=== PATIENT | female | born 1955 | race Caucasian/White ===

== ENCOUNTER 2016-09-14 19:40 | Observation (INO) | payer OTHER ==
[~2016-09-14] VITALS: Ht 160 cm; Wt 43.7 kg
[~2016-09-14 19:40] MED LIST: ALBUTEROL17 GM IH; ASPIR-LOW81 MG PO; ASPIRIN325 MG PO; Advair HFA 115/21 IH; DULERA 100 MCG/13 GM IH; DULERA 200 MCG/13 GM IH; DUONEB3 ML IH; Flonase BOTH NARES; Habitrol,Nicoderm CQ TD; IBUPROFEN800 MG PO; INDERAL10 MG PO; LEVAQUIN750 MG PO; LEVOFLOXACIN750 MG PO; LEVOTHYROXINE50 MCG PO; LEVOTHYROXINE75 MCG PO; LORAZEPAM0.5 MG PO; Levaquin PO; MOBIC15 MG PO; MOTRIN800 MG PO; MULTIVITAMIN1 EAC2 PO; MYCELEX10 MG MM; NOHOMEMEDS; Ocean Nasal 0.65%; PREDNISONE10 MG PO; PREDNISONE20 MG PO; PROTONIX40 MG PO; Proventil,Ventolin H IH; TRAMADOL HCL50 MG PO; TYLENOL/CODE1 TABLET PO; VENTOLIN HFA18 GM IH; VITAMIN D-32000 UNI1 PO; Xanax PO; Zithromax PO
[2016-09-14 20:06] LABS: HEMATOCRIT 36.8 % (36.0-46.0); MCH 26.7 PG (29.0-34.0); MCHC 30.7 G/DL (30.0-36.0); MCV 86.8 FL (83-99); MEAN PLAT.VOLUME 8.9 uM^3 (9.5-12.4); PLATELET COUNT 397 K/uL (156-360); RBC DIS.WIDTH-CV 14.9 % (11.8-14.6); RBC DIS.WIDTH-SD 47.5 % (39-53); RED BLOOD COUNT 4.24 M/uL (3.80-5.20); WHITE BLOOD COUNT 6.1 K/uL (4.1-10.2)
[2016-09-14 20:19] LABS: CHLORIDE 101 mEq/L (99-109); POTASSIUM 3.7 mEq/L (3.7-5.4); SODIUM 141 mEq/L (136-147)
[2016-09-14 20:20] LABS: GLUCOSE 119 mg/dL (70-99)
[2016-09-14 20:22] LABS: ANION GAP 9 MEQ/L (2-14)
[2016-09-14 20:24] LABS: GFR ESTIMATE (CALCULATED) > 59 mL/min/
[2016-09-14 20:25] LABS: UREA NITROGEN (BUN) 13 mg/dL (9-23)
[2016-09-14 20:27] LABS: TROP-I INTERPRETATION NEGATIVE; TROPONIN-I < 0.01 ng/mL (0.0-0.30)
[2016-09-14 21:50] LABS: INFLUENZA A VIRAL ANTIGEN NEGATIVE; INFLUENZA B VIRAL ANTIGEN NEGATIVE
[2016-09-15] MEDS ORDERED: ATIVAN0.5 MG PO (00:15)
[2016-09-15] MEDS ORDERED: CLOPIDOGREL75 MG PO (00:16)
[2016-09-15] MEDS ORDERED: LISINOPRIL10 MG PO (00:17)
[2016-09-15] MEDS ORDERED: VITAMIN D2000 UNIT PO (00:18)
[2016-09-15] MEDS ORDERED: CYANOCOBALAM1000 MCG PO (00:19)
[2016-09-15] MEDS ORDERED: OXYCODONE-ACET1 EACH PO (00:19)
[2016-09-15] MEDS ORDERED: IBUPROFEN800 MG PO (00:20)
[2016-09-15] MEDS ORDERED: DALIRESP500 MCG PO (00:21)
[2016-09-15] MEDS ORDERED: NICOTINE PATCH1 EAC2 TD (00:22)
[2016-09-15] MEDS ORDERED: SALINE NASAL SP45 ML BOTH NARES (00:22)
[2016-09-15 01:05] VITALS: BP 114/69
[2016-09-15 02:12] LABS: ADD MIUA? YES; BILIRUBIN NEGATIVE; BLOOD NEGATIVE; COLOR YELLOW ((YELLOW)); GLUCOSE (STRIP) NEGATIVE; KETONES 5; LEUKOCYTES NEGATIVE; NITRITE NEGATIVE; PROTEIN (STRIP) NEGATIVE; SPECIFIC GRAVITY 1.021 (1.000-1.030); UROBILINOGEN 0.2 MG/DL (0.2-1.0)
[2016-09-15 02:20] LABS: BACTERIA RARE /HPF; EPITHELIAL CELLS RARE /HPF; MUCUS 3+ /LPF; RED BLOOD CELLS 0-5 /HPF (0-5); UCUL ADDED? NO; WHITE BLOOD CELLS 0-5 /HPF (0-5)
[2016-09-15 02:54] LABS: TROP-I INTERPRETATION NEGATIVE; TROPONIN-I < 0.01 ng/mL (0.0-0.30)
[2016-09-15 04:30] VITALS: BP 116/64
[2016-09-15 08:36] VITALS: BP 104/55
[2016-09-15 09:32] LABS: TROP-I INTERPRETATION NEGATIVE; TROPONIN-I < 0.01 ng/mL (0.0-0.30)
[2016-09-15 11:52] VITALS: BP 115/70
[2016-09-15] MEDS ORDERED: AZITHROMYCIN500 M1 PO (13:32)
[2016-09-15] MEDS ORDERED: CEFTIN500 MG PO (13:32)
[2016-09-15] MEDS ORDERED: ASPIR-LOW81 MG PO (13:32)
[2016-09-15] MEDS ORDERED: BENZONATATE100 MG PO (13:34)
[2016-09-15] MEDS ORDERED: PREDNISONE10 MG PO (13:35)
== END 2016-09-15 15:17 | disposition home or self-care (01) ==
LOC: EME → EDBD 19:40 → EME 19:40 → EDOF 23:52 → 5WEST 09-15 00:53
PROVIDERS: Emergency Medicine; Family Medicine
DX: J44.1 Chronic obstructive pulmonary disease with (acute) exacerbation (principal); J96.21 Acute and chronic respiratory failure with hypoxia; R07.89 Other chest pain; I10 Essential (primary) hypertension; E03.9 Hypothyroidism, unspecified; I25.10 Atherosclerotic heart disease of native coronary artery without angina pectoris; Z99.81 Dependence on supplemental oxygen; F17.210 Nicotine dependence, cigarettes, uncomplicated; F41.9 Anxiety disorder, unspecified
CPT/HCPCS: 71010; 71020; 80048; 81003; 83605; 83880; 84484; 85027; 87502; 93005; 94640; 94640 76; 94799; 99202; 99281; 99285; G0378; J1644; J2930

== ENCOUNTER 2016-09-17 18:29 | Inpatient (IN) | payer OTHER ==
[2016-09-17] VITALS (9 sets, daily range): BP systolic 108–153; BP diastolic 71–114
[~2016-09-17] VITALS: Ht 160 cm; Wt 43.8 kg
[~2016-09-17 18:29] MED LIST changes: +ATIVAN0.5 MG PO; +AZITHROMYCIN500 M1 PO; +BENZONATATE100 MG PO; +CEFTIN500 MG PO; +CLOPIDOGREL75 MG PO; +CYANOCOBALAM1000 MCG PO; +DALIRESP500 MCG PO; +LISINOPRIL10 MG PO; +NICOTINE PATCH1 EAC2 TD; +OXYCODONE-ACET1 EACH PO; +SALINE NASAL SP45 ML BOTH NARES; +VITAMIN D2000 UNIT PO
[2016-09-17 19:52] LABS: HEMATOCRIT 37.1 % (36.0-46.0); MCH 26.5 PG (29.0-34.0); MCHC 30.2 G/DL (30.0-36.0); MCV 87.9 FL (83-99); MEAN PLAT.VOLUME 9.1 uM^3 (9.5-12.4); PLATELET COUNT 405 K/uL (156-360); RBC DIS.WIDTH-CV 14.9 % (11.8-14.6); RBC DIS.WIDTH-SD 47.2 % (39-53); RED BLOOD COUNT 4.22 M/uL (3.80-5.20); WHITE BLOOD COUNT 9.8 K/uL (4.1-10.2)
[2016-09-17 20:00] LABS: CHLORIDE 102 mEq/L (99-109); SODIUM 142 mEq/L (136-147)
[2016-09-17 20:02] LABS: GLUCOSE 102 mg/dL (70-99)
[2016-09-17 20:03] LABS: ANION GAP 8 MEQ/L (2-14)
[2016-09-17 20:06] LABS: GFR ESTIMATE (CALCULATED) > 59 mL/min/
[2016-09-17 20:07] LABS: UREA NITROGEN (BUN) 15 mg/dL (9-23)
[2016-09-17 22:52] LABS: TROP-I INTERPRETATION INDETERMINATE; TROPONIN-I 0.38 ng/mL (0.0-0.30)
[2016-09-18 00:27] LABS: TROP-I INTERPRETATION POSITIVE
[2016-09-18 00:28] LABS: TROPONIN-I 0.63 ng/mL (0.0-0.30)
[2016-09-18 01:38] LABS: PROTHROMBIN TIME 10.2 (9.2-11.2); PTT 25.9 (25-32)
[2016-09-18 06:46] LABS: HEMATOCRIT 36.2 % (36.0-46.0); MCH 26.3 PG (29.0-34.0); MCHC 29.8 G/DL (30.0-36.0); MCV 88.3 FL (83-99); MEAN PLAT.VOLUME 9.1 uM^3 (9.5-12.4); PLATELET COUNT 404 K/uL (156-360); RBC DIS.WIDTH-CV 14.9 % (11.8-14.6); RBC DIS.WIDTH-SD 47.2 % (39-53); WHITE BLOOD COUNT 9.1 K/uL (4.1-10.2)
[2016-09-18 06:58] LABS: CHLORIDE 103 mEq/L (99-109); POTASSIUM 3.9 mEq/L (3.7-5.4); SODIUM 141 mEq/L (136-147)
[2016-09-18 07:00] LABS: GLUCOSE 92 mg/dL (70-99)
[2016-09-18 07:01] LABS: ANION GAP 6 MEQ/L (2-14)
[2016-09-18 07:02] LABS: TOTAL BILIRUBIN 0.3 mg/dL (0.0-1.0)
[2016-09-18 07:03] LABS: ALKALINE PHOSPHATASE 52 IU/L (3-129)
[2016-09-18 07:04] LABS: GFR ESTIMATE (CALCULATED) > 59 mL/min/
[2016-09-18 07:05] LABS: UREA NITROGEN (BUN) 12 mg/dL (9-23)
[2016-09-18 07:09] LABS: TROP-I INTERPRETATION INDETERMINATE; TROPONIN-I 0.56 ng/mL (0.0-0.30)
[2016-09-18 13:48] LABS: PROTHROMBIN TIME 10.4 (9.2-11.2); PTT 44.1 (25-32)
[2016-09-18 13:58] LABS: TROP-I INTERPRETATION NEGATIVE; TROPONIN-I 0.24 ng/mL (0.0-0.30)
[2016-09-18 16:40] VITALS: BP 133/81
[2016-09-18 19:30] VITALS: BP 111/75
[2016-09-18 23:20] VITALS: BP 120/72
[2016-09-19] VITALS (8 sets, daily range): BP systolic 104–120; BP diastolic 59–72
[2016-09-19 07:01] LABS: EOSINOPHIL (%) 0 % (0-5); IMMATURE GRANULOCYTE (%) 0.2 % (0.0-0.7); LYMPHOCYTE COUNT 1.4 K/uL (1.0-2.8); MCHC 29.8 G/DL (30.0-36.0); MCV 87.5 FL (83-99); MEAN PLAT.VOLUME 9.3 uM^3 (9.5-12.4); MONOCYTE (%) 4.2 % (3-12); MONOCYTE COUNT 0.5 K/uL (0-0.8); NEUTROPHIL (%) 83.4 % (45-76); NEUTROPHIL COUNT 9.7 K/uL (1.8-6.4); PLATELET COUNT 459 K/uL (156-360); RBC DIS.WIDTH-SD 47.6 % (39-53); RED BLOOD COUNT 4.57 M/uL (3.80-5.20); WHITE BLOOD COUNT 11.6 K/uL (4.1-10.2)
[2016-09-19 07:58] LABS: ANION GAP 6 MEQ/L (2-14); CHLORIDE 104 MEQ/L (99-109); GFR ESTIMATE (CALCULATED) > 59 mL/min/; MAGNESIUM 2.4 mg/dl (1.3-2.7); POTASSIUM 4.4 MEQ/L (3.7-5.4); SAMPLE HEMOLYSIS CHECK 0; SAMPLE ICTERIC CHECK 0; SAMPLE LIPEMIA CHECK 0; SODIUM 140 MEQ/L (136-147); UREA NITROGEN (BUN) 16 mg/dL (9-23)
[2016-09-19 08:05] LABS: GLUCOSE 141 mg/dL (70-99)
[2016-09-20 03:43] VITALS: BP 117/65
[2016-09-20 07:38] VITALS: BP 122/67
[2016-09-20 11:07] VITALS: BP 117/60
[2016-09-20 15:39] VITALS: BP 122/69
[2016-09-20 20:30] VITALS: BP 118/61
[2016-09-21] VITALS (9 sets, daily range): BP systolic 110–149; BP diastolic 56–89
[2016-09-21 07:24] LABS: EOSINOPHIL (%) 0.1 % (0-5); HEMATOCRIT 35.6 % (36.0-46.0); IMMATURE GRANULOCYTE (%) 0.7 % (0.0-0.7); IMMATURE GRANULOCYTE COUNT 0.1 K/uL; LYMPHOCYTE COUNT 0.7 K/uL (1.0-2.8); MCH 26.8 PG (29.0-34.0); MCHC 29.2 G/DL (30.0-36.0); MEAN PLAT.VOLUME 9.9 uM^3 (9.5-12.4); MONOCYTE (%) 2.5 % (3-12); MONOCYTE COUNT 0.4 K/uL (0-0.8); NEUTROPHIL (%) 91.8 % (45-76); NEUTROPHIL COUNT 13.5 K/uL (1.8-6.4); PLATELET COUNT 386 K/uL (156-360); RBC DIS.WIDTH-CV 15.4 % (11.8-14.6); RBC DIS.WIDTH-SD 51.5 % (39-53); RED BLOOD COUNT 3.88 M/uL (3.80-5.20); WHITE BLOOD COUNT 14.7 K/uL (4.1-10.2)
[2016-09-21 07:25] LABS: MCV 91.8 FL (83-99)
[2016-09-21 07:50] LABS: ANION GAP 4 MEQ/L (2-14); CHLORIDE 98 MEQ/L (99-109); GFR ESTIMATE (CALCULATED) > 59 mL/min/; GLUCOSE 122 mg/dL (70-99); MAGNESIUM 2.1 mg/dl (1.3-2.7); POTASSIUM 4.8 MEQ/L (3.7-5.4); SAMPLE HEMOLYSIS CHECK 0; SAMPLE ICTERIC CHECK 0; SAMPLE LIPEMIA CHECK 0; SODIUM 141 MEQ/L (136-147); UREA NITROGEN (BUN) 21 mg/dL (9-23)
[2016-09-21 12:12] LABS: BASE EXCESS 12.6 mEq/L (-3 to +3); BICARBONATE 41.8 mEq/L (22-26); CARBOXY HGB 2.3 % (0-5); METHEMOGLOBIN 1.8 % (0-1.5); PO2 56 mm Hg (80-100); pH 7.31 (7.35-7.45)
[2016-09-21 12:13] LABS: DEVICE NC; O2 FLOW 4 L/MIN; PCO2 83 mm Hg (35-45); SITE LR; TOTAL RESP RATE 30 resp/min
[2016-09-21 16:19] LABS: METH RESISTANT S AUREUS PCR NEGATIVE (NEGATIVE)
[2016-09-21 16:26] LABS: PROBE CHECK PASS; SPECIMEN PROCESSING CONTROL PASS
[2016-09-22] VITALS (10 sets, daily range): BP systolic 112–157; BP diastolic 59–80
[2016-09-22 08:53] LABS: HEMATOCRIT 37.2 % (36.0-46.0); MCHC 28.8 G/DL (30.0-36.0); MCV 90.3 FL (83-99); MEAN PLAT.VOLUME 9.5 uM^3 (9.5-12.4); PLATELET COUNT 425 K/uL (156-360); RBC DIS.WIDTH-CV 15.2 % (11.8-14.6); RED BLOOD COUNT 4.12 M/uL (3.80-5.20); WHITE BLOOD COUNT 15.7 K/uL (4.1-10.2)
[2016-09-22 09:00] LABS: EOSINOPHIL (%) 0 % (0-5); IMMATURE GRANULOCYTE (%) 0.4 % (0.0-0.7); IMMATURE GRANULOCYTE COUNT 0.1 K/uL; MONOCYTE (%) 5.9 % (3-12); MONOCYTE COUNT 0.9 K/uL (0-0.8); NEUTROPHIL (%) 87.2 % (45-76); NEUTROPHIL COUNT 13.7 K/uL (1.8-6.4)
[2016-09-22 09:22] LABS: ANION GAP 7 MEQ/L (2-14); CHLORIDE 95 MEQ/L (99-109); GFR ESTIMATE (CALCULATED) > 59 mL/min/; GLUCOSE 161 mg/dL (70-99); MAGNESIUM 2.2 mg/dl (1.3-2.7); POTASSIUM 4.3 MEQ/L (3.7-5.4); SAMPLE HEMOLYSIS CHECK 0; SAMPLE ICTERIC CHECK 0; SAMPLE LIPEMIA CHECK 0; SODIUM 142 MEQ/L (136-147); UREA NITROGEN (BUN) 23 mg/dL (9-23)
[2016-09-22 12:00] LABS: BASE EXCESS 19.1 mEq/L (-3 to +3); BICARBONATE 48.6 mEq/L (22-26); METHEMOGLOBIN 1.5 % (0-1.5); pH 7.34 (7.35-7.45)
[2016-09-22 12:01] LABS: COMMENTS - BLOOD GASES A+C+; DEVICE NC; O2 FLOW 4 L/MIN; PCO2 90 mm Hg (35-45); PO2 68 mm Hg (80-100); SITE LR; TOTAL RESP RATE 12 resp/min
[2016-09-23 03:45] VITALS: BP 124/73
[2016-09-23 07:00] VITALS: BP 138/73
[2016-09-23 07:20] LABS: EOSINOPHIL (%) 0 % (0-5); HEMATOCRIT 36.2 % (36.0-46.0); IMMATURE GRANULOCYTE (%) 0.3 % (0.0-0.7); LYMPHOCYTE COUNT 0.6 K/uL (1.0-2.8); MCH 26.1 PG (29.0-34.0); MCV 89.8 FL (83-99); MEAN PLAT.VOLUME 9.3 uM^3 (9.5-12.4); MONOCYTE (%) 6.3 % (3-12); MONOCYTE COUNT 0.6 K/uL (0-0.8); NEUTROPHIL COUNT 8.2 K/uL (1.8-6.4); PLATELET COUNT 368 K/uL (156-360); RBC DIS.WIDTH-CV 15.3 % (11.8-14.6); RBC DIS.WIDTH-SD 50.2 % (39-53); RED BLOOD COUNT 4.03 M/uL (3.80-5.20)
[2016-09-23 07:24] LABS: WHITE BLOOD COUNT 9.4 K/uL (4.1-10.2)
[2016-09-23 07:30] LABS: ANION GAP ND MEQ/L (2-14); CHLORIDE 94 MEQ/L (99-109); GFR ESTIMATE (CALCULATED) > 59 mL/min/; GLUCOSE 130 mg/dL (70-99); MAGNESIUM 2.3 mg/dl (1.3-2.7); POTASSIUM 4.5 MEQ/L (3.7-5.4); SAMPLE HEMOLYSIS CHECK 0; SAMPLE ICTERIC CHECK 0; SAMPLE LIPEMIA CHECK 0; SODIUM 141 MEQ/L (136-147); UREA NITROGEN (BUN) 21 mg/dL (9-23)
[2016-09-23 07:31] LABS: CARBON DIOXIDE (BICARBONATE) > 40.0 MEQ/L (20-31)
[2016-09-23 12:00] VITALS: BP 119/67
[2016-09-23 16:00] VITALS: BP 145/72
[2016-09-23 19:30] VITALS: BP 122/76
[2016-09-23 19:35] VITALS: BP 110/75
[2016-09-24] VITALS (7 sets, daily range): BP systolic 115–142; BP diastolic 56–76
[2016-09-24 06:45] LABS: HEMATOCRIT 33.5 % (36.0-46.0); MCH 26.1 PG (29.0-34.0); MCHC 28.7 G/DL (30.0-36.0); MEAN PLAT.VOLUME 9.8 uM^3 (9.5-12.4); PLATELET COUNT 352 K/uL (156-360); RBC DIS.WIDTH-CV 15.3 % (11.8-14.6); RBC DIS.WIDTH-SD 51.2 % (39-53); RED BLOOD COUNT 3.68 M/uL (3.80-5.20); WHITE BLOOD COUNT 9.3 K/uL (4.1-10.2)
[2016-09-24 07:32] LABS: EOSINOPHIL (%) 0 % (0-5); IMMATURE GRANULOCYTE (%) 0.2 % (0.0-0.7); LYMPHOCYTE COUNT 0.6 K/uL (1.0-2.8); MONOCYTE (%) 6.4 % (3-12); MONOCYTE COUNT 0.6 K/uL (0-0.8); NEUTROPHIL (%) 87.4 % (45-76); NEUTROPHIL COUNT 8.1 K/uL (1.8-6.4)
[2016-09-24 07:49] LABS: ANION GAP ND MEQ/L (2-14); CHLORIDE 95 MEQ/L (99-109); GFR ESTIMATE (CALCULATED) > 59 mL/min/; GLUCOSE 172 mg/dL (70-99); MAGNESIUM 2.2 mg/dl (1.3-2.7); POTASSIUM 4.3 MEQ/L (3.7-5.4); SAMPLE HEMOLYSIS CHECK 0; SAMPLE ICTERIC CHECK 0; SAMPLE LIPEMIA CHECK 0; SODIUM 141 MEQ/L (136-147); UREA NITROGEN (BUN) 24 mg/dL (9-23)
[2016-09-24 07:50] LABS: CARBON DIOXIDE (BICARBONATE) > 40.0 MEQ/L (20-31)
[2016-09-24 10:01] LABS: BASE EXCESS 19.5 mEq/L (-3 to +3); BICARBONATE 47.9 mEq/L (22-26); METHEMOGLOBIN 1.5 % (0-1.5); PO2 64 mm Hg (80-100); pH 7.38 (7.35-7.45)
[2016-09-24 10:02] LABS: COMMENTS - BLOOD GASES A+C+; DEVICE NCH; MECHANICAL RATE 16 resp/min; O2 FLOW 5 L/MIN; PCO2 81 mm Hg (35-45); SITE LR
[2016-09-25] VITALS (7 sets, daily range): BP systolic 115–139; BP diastolic 57–87
[2016-09-26 04:21] VITALS: BP 136/78
[2016-09-26 06:47] LABS: HEMATOCRIT 32.6 % (36.0-46.0); MCH 26.1 PG (29.0-34.0); MCHC 30.1 G/DL (30.0-36.0); MEAN PLAT.VOLUME 9.6 uM^3 (9.5-12.4); PLATELET COUNT 346 K/uL (156-360); RBC DIS.WIDTH-CV 15.5 % (11.8-14.6); RBC DIS.WIDTH-SD 49.8 % (39-53); RED BLOOD COUNT 3.75 M/uL (3.80-5.20)
[2016-09-26 06:50] LABS: MCV 86.9 FL (83-99)
[2016-09-26 07:07] LABS: ANION GAP 4 MEQ/L (2-14); CHLORIDE 96 MEQ/L (99-109); GFR ESTIMATE (CALCULATED) > 59 mL/min/; POTASSIUM 4.3 MEQ/L (3.7-5.4); SAMPLE HEMOLYSIS CHECK 0; SAMPLE ICTERIC CHECK 0; SAMPLE LIPEMIA CHECK 0; SODIUM 140 MEQ/L (136-147); UREA NITROGEN (BUN) 21 mg/dL (9-23)
[2016-09-26 07:12] LABS: GLUCOSE 94 mg/dL (70-99)
[2016-09-26 07:45] VITALS: BP 113/75
[2016-09-26 12:30] VITALS: BP 135/67
[2016-09-26 15:30] VITALS: BP 153/71
[2016-09-26 18:54] VITALS: BP 128/77
[2016-09-26 23:32] VITALS: BP 145/73
[2016-09-27 03:58] VITALS: BP 131/79
[2016-09-27 05:51] LABS: HEMATOCRIT 31.4 % (36.0-46.0); MCH 26.9 PG (29.0-34.0); MCHC 30.9 G/DL (30.0-36.0); MEAN PLAT.VOLUME 9.9 uM^3 (9.5-12.4); PLATELET COUNT 351 K/uL (156-360); RBC DIS.WIDTH-CV 15.6 % (11.8-14.6); RBC DIS.WIDTH-SD 49.3 % (39-53); RED BLOOD COUNT 3.61 M/uL (3.80-5.20); WHITE BLOOD COUNT 12.1 K/uL (4.1-10.2)
[2016-09-27 06:34] LABS: ANION GAP 5 MEQ/L (2-14); CHLORIDE 100 MEQ/L (99-109); GFR ESTIMATE (CALCULATED) > 59 mL/min/; GLUCOSE 77 mg/dL (70-99); POTASSIUM 4.4 MEQ/L (3.7-5.4); SAMPLE HEMOLYSIS CHECK 0; SAMPLE ICTERIC CHECK 0; SAMPLE LIPEMIA CHECK 0; SODIUM 141 MEQ/L (136-147); UREA NITROGEN (BUN) 19 mg/dL (9-23)
[2016-09-27 08:15] VITALS: BP 122/76
[2016-09-27] MEDS ORDERED: METOPROLOL SUCC25 MG PO (10:52)
[2016-09-27] MEDS ORDERED: OXYCODONE-ACET1 EACH PO (10:52)
[2016-09-27] MEDS ORDERED: PREDNISONE20 MG PO (10:52)
[2016-09-27] MEDS ORDERED: ATORVASTATIN CA40 MG PO (10:52)
[2016-09-27 11:52] VITALS: BP 109/67
[2016-09-27 15:15] VITALS: BP 130/73
[2016-09-27 19:22] VITALS: BP 114/69
[2016-09-27 23:52] VITALS: BP 124/67
[2016-09-28 03:41] VITALS: BP 118/58
[2016-09-28 07:47] VITALS: BP 158/80
[2016-09-28 11:24] VITALS: BP 109/55
[2016-09-28] MEDS ORDERED: NAPROXEN500 MG PO (14:13)
[2016-09-28] MEDS ORDERED: ALPRAZOLAM0.5 MG PO (14:13)
[2016-09-28 15:19] VITALS: BP 93/54
== END 2016-09-28 15:45 | DRG 280 ==
LOC: EME → EDBD 18:29 → EME 18:29 → 4EAST 09-18 01:41 → 4WEST 09-18 01:41 → EDOF 09-18 01:41 → 4EAST 09-18 15:33 → 4WEST 09-21 14:25 → 4EAST 09-22 08:17
PROVIDERS: Emergency Medicine; Hospitalist; Internal Medicine
DX: I21.4 Non-ST elevation (NSTEMI) myocardial infarction (principal); J96.21 Acute and chronic respiratory failure with hypoxia; J44.1 Chronic obstructive pulmonary disease with (acute) exacerbation; E03.9 Hypothyroidism, unspecified; E87.4 Mixed disorder of acid-base balance; G89.29 Other chronic pain; I25.5 Ischemic cardiomyopathy; E78.2 Mixed hyperlipidemia; I25.2 Old myocardial infarction; F17.210 Nicotine dependence, cigarettes, uncomplicated; D72.829 Elevated white blood cell count, unspecified; D47.3 Essential (hemorrhagic) thrombocythemia; R00.0 Tachycardia, unspecified; R94.31 Abnormal electrocardiogram [ECG] [EKG]; I15.0 Renovascular hypertension; I25.10 Atherosclerotic heart disease of native coronary artery without angina pectoris; G47.33 Obstructive sleep apnea (adult) (pediatric); Z99.81 Dependence on supplemental oxygen; Z88.1 Allergy status to other antibiotic agents; Z88.8 Allergy status to other drugs, medicaments and biological substances; Z79.82 Long term (current) use of aspirin
CPT/HCPCS: 36600; 71010; 71020; 78582; 80048; 80053; 81003; 82803; 83605; 83735; 83880; 84484; 85025; 85027; 85610; 85730; 87070; 87205; 87502; 87641; 93005; 93306; 94640; 94640 76; 94660; 94667; 94668; 94760; 94799; 99202; 99281; 99285; A9539; A9540; C1750; C1769; C1887; G0378; J0692; J1200; J1644; J2060; J2250; J2270; J2405; J2765; J2920; J2930; J3010; J7030; J7040; J7050; J7512; S0028

== ENCOUNTER 2016-10-18 10:31 | Inpatient (IN) | payer OTHER ==
[~2016-10-18] VITALS: Ht 160 cm; Wt 49.3 kg
[~2016-10-18 10:31] MED LIST changes: +ALPRAZOLAM0.5 MG PO; +ATORVASTATIN CA40 MG PO; +METOPROLOL SUCC25 MG PO; +NAPROXEN500 MG PO
[2016-10-18 11:22] LABS: ADD MIUA? YES; BILIRUBIN NEGATIVE; BLOOD LARGE; COLOR YELLOW ((YELLOW)); GLUCOSE (STRIP) NEGATIVE; KETONES NEGATIVE; LEUKOCYTES NEGATIVE; NITRITE POSITIVE; PROTEIN (STRIP) 100; SPECIFIC GRAVITY 1.011 (1.000-1.030); UROBILINOGEN 0.2 MG/DL (0.2-1.0)
[2016-10-18 11:27] LABS: EOSINOPHIL (%) 0 % (0-5); HEMATOCRIT 23.5 % (36.0-46.0); IMMATURE GRANULOCYTE (%) 0.5 % (0.0-0.7); INSTRUMENT ABS NEUTROPHIL CT 1.9 K/uL; LYMPHOCYTE COUNT 0.3 K/uL (1.0-2.8); MCH 26.6 PG (29.0-34.0); MCHC 30.2 G/DL (30.0-36.0); MEAN PLAT.VOLUME 8.4 uM^3 (9.5-12.4); MONOCYTE (%) 0 % (3-12); NEUTROPHIL (%) 86.5 % (45-76); NEUTROPHIL COUNT 1.9 K/uL (1.8-6.4); PLATELET COUNT 307 K/uL (156-360); RBC DIS.WIDTH-CV 16.1 % (11.8-14.6); RBC DIS.WIDTH-SD 51.9 % (39-53); RED BLOOD COUNT 2.67 M/uL (3.80-5.20)
[2016-10-18 11:34] LABS: CHLORIDE 100 mEq/L (99-109); POTASSIUM 4.4 mEq/L (3.7-5.4); SODIUM 135 mEq/L (136-147)
[2016-10-18 11:36] LABS: GLUCOSE 110 mg/dL (70-99)
[2016-10-18 11:38] LABS: ANION GAP 8 MEQ/L (2-14); TOTAL BILIRUBIN 0.7 mg/dL (0.0-1.0)
[2016-10-18 11:40] LABS: ALKALINE PHOSPHATASE 158 IU/L (3-129); GFR ESTIMATE (CALCULATED) > 59 mL/min/
[2016-10-18 11:41] LABS: UREA NITROGEN (BUN) 21 mg/dL (9-23)
[2016-10-18] MEDS ORDERED: DULERA 200 MCG/13 GM IH (11:41)
[2016-10-18] MEDS ORDERED: ALEVE220 M2 PO (11:43)
[2016-10-18 11:47] LABS: TROP-I INTERPRETATION NEGATIVE; TROPONIN-I 0.01 ng/mL (0.0-0.30)
[2016-10-18 11:48] LABS: RED BLOOD CELLS TNTC /HPF (0-5)
[2016-10-18 11:49] LABS: WHITE BLOOD CELLS 0-5 /HPF (0-5)
[2016-10-18 11:50] LABS: BACTERIA 4+ /HPF; EPITHELIAL CELLS 1+ /HPF; MUCUS 1+ /LPF; UCUL ADDED? YES
[2016-10-18] MEDS ORDERED: LEVO-T50 MCG PO (11:54)
[2016-10-18] MEDS ORDERED: REMERON15 M2 PO (11:55)
[2016-10-18] MEDS ORDERED: COLACE100 MG PO (11:55)
[2016-10-18] MEDS ORDERED: PEPCID20 MG PO (11:56)
[2016-10-18] MEDS ORDERED: PERCOCET 5/31 TABLET PO (11:58)
[2016-10-18] MEDS ORDERED: ACETAMINOPHEN325 M3 PO (11:59)
[2016-10-18 12:23] LABS: ABS NEUTROPHIL COUNT 1.8; BAND NEUTROPHILS 14.8 % (0-8.0); BASOPHILS 1.9 %; EOSINOPHIL ABS CT 0; LYMPHOCYTES 14.8 % (15.0-45.0); PLAT.SUFFICIENCY ADEQUATE; SEG.NEUTROPHILS 68.5 % (46.0-76.0)
[2016-10-18 12:27] LABS: WHITE BLOOD COUNT 2.2 K/uL (4.1-10.2)
[2016-10-18] MEDS ORDERED: LIPITOR40 MG PO (13:55)
[2016-10-18] MEDS ORDERED: TOPROL XL25 MG PO (13:56)
[2016-10-18] MEDS ORDERED: NAPROSYN500 MG PO (13:58)
[2016-10-18] MEDS ORDERED: LOW DOSE ASPIRI81 M1 PO (14:01)
[2016-10-18] MEDS ORDERED: VITAMIN D32000 UNI1 PO (14:04)
[2016-10-18] MEDS ORDERED: MILK OF MAGN PO (14:11)
[2016-10-18] MEDS ORDERED: DULCOLAX10 MG PR (14:12)
[2016-10-18] MEDS ORDERED: FLEET ENEMA-AD118 ML PR (14:12)
[2016-10-18] MEDS ORDERED: XANAX0.5 MG PO (14:14)
[2016-10-18] MEDS ORDERED: TESSALON200 MG PO (14:18)
[2016-10-18] MEDS ORDERED: PROVENTIL,2.5 MG/3 M IH (14:19)
[2016-10-18] MEDS ORDERED: LISINOPRIL5 MG PO (14:21)
[2016-10-18 18:17] VITALS: BP 81/51
[2016-10-18 19:27] VITALS: BP 92/39
[2016-10-18 23:33] VITALS: BP 93/51
[2016-10-19] VITALS (25 sets, daily range): BP systolic 70–124; BP diastolic 50–75
[2016-10-19 05:34] LABS: METH RESISTANT S AUREUS PCR NEGATIVE (NEGATIVE)
[2016-10-19 05:36] LABS: PROBE CHECK PASS; SPECIMEN PROCESSING CONTROL PASS
[2016-10-19 06:21] LABS: HEMATOCRIT 17.7 % (36.0-46.0); MCH 26.9 PG (29.0-34.0); MCHC 29.9 G/DL (30.0-36.0); MCV 89.8 FL (83-99); MEAN PLAT.VOLUME 9.5 uM^3 (9.5-12.4); PLATELET COUNT 244 K/uL (156-360); RBC DIS.WIDTH-CV 16.7 % (11.8-14.6); RBC DIS.WIDTH-SD 54.4 % (39-53); RED BLOOD COUNT 1.97 M/uL (3.80-5.20); WHITE BLOOD COUNT 14.8 K/uL (4.1-10.2)
[2016-10-19 07:02] LABS: ANION GAP 5 MEQ/L (2-14); CHLORIDE 108 MEQ/L (99-109); SAMPLE HEMOLYSIS CHECK 0; SAMPLE ICTERIC CHECK 0; SAMPLE LIPEMIA CHECK 0; SODIUM 138 MEQ/L (136-147)
[2016-10-19 07:10] LABS: GFR ESTIMATE (CALCULATED) 53 mL/min/; GLUCOSE 97 mg/dL (70-99); UREA NITROGEN (BUN) 21 mg/dL (9-23)
[2016-10-19 08:43] LABS: ABS NEUTROPHIL COUNT 13.9; EOSINOPHIL ABS CT 0; INSTRUMENT ABS NEUTROPHIL CT 12.8 K/uL
[2016-10-19 16:53] LABS: ABS NEUTROPHIL COUNT 15.8; BAND NEUTROPHILS 17.5 % (0-8.0); EOSINOPHIL ABS CT 0; HEMATOCRIT 27.2 % (36.0-46.0); HYPOCHROMASIA 2+; LYMPHOCYTES 2.6 % (15.0-45.0); MCH 28.3 PG (29.0-34.0); MCHC 31.3 G/DL (30.0-36.0); MCV 90.7 FL (83-99); MEAN PLAT.VOLUME 9.4 uM^3 (9.5-12.4); METAMYELOCYTES 1.8 %; MYELOCYTES 0.9 %; PLAT.SUFFICIENCY ADEQUATE; PLATELET COUNT 239 K/uL (156-360); POIKILOCYTOSIS 1+; RBC DIS.WIDTH-CV 15.7 % (11.8-14.6); RBC DIS.WIDTH-SD 51.3 % (39-53); SEG.NEUTROPHILS 74.6 % (46.0-76.0); SMUDGE CELLS 3.5; WHITE BLOOD COUNT 17.2 K/uL (4.1-10.2)
[2016-10-20 05:30] VITALS: BP 130/73
[2016-10-20 06:59] LABS: HEMATOCRIT 27.1 % (36.0-46.0); MCH 27.3 PG (29.0-34.0); MCHC 30.6 G/DL (30.0-36.0); MCV 89.1 FL (83-99); PLATELET COUNT 233 K/uL (156-360); RBC DIS.WIDTH-CV 16.3 % (11.8-14.6); RBC DIS.WIDTH-SD 53.1 % (39-53); RED BLOOD COUNT 3.04 M/uL (3.80-5.20); WHITE BLOOD COUNT 16.2 K/uL (4.1-10.2)
[2016-10-20 08:17] LABS: ABS NEUTROPHIL COUNT 15.6; ATYPICAL LYMPHOCYTE 0.9 %; BAND NEUTROPHILS 20.2 % (0-8.0); EOSINOPHIL ABS CT 0; INSTRUMENT ABS NEUTROPHIL CT 13.1 K/uL; LYMPHOCYTES 0.9 % (15.0-45.0); OVALOCYTES 1+; PLAT.SUFFICIENCY ADEQUATE; POIKILOCYTOSIS 1+; SEG.NEUTROPHILS 76.3 % (46.0-76.0)
[2016-10-20 08:23] LABS: ALKALINE PHOSPHATASE 125 IU/L (3-129); ANION GAP 7 MEQ/L (2-14); CHLORIDE 110 MEQ/L (99-109); GFR ESTIMATE (CALCULATED) > 59 mL/min/; GLUCOSE 121 mg/dL (70-99); POTASSIUM 4.1 MEQ/L (3.7-5.4); SAMPLE HEMOLYSIS CHECK 0; SAMPLE ICTERIC CHECK 0; SAMPLE LIPEMIA CHECK 0; SODIUM 142 MEQ/L (136-147); TOTAL BILIRUBIN 0.3 MG/DL (0.0-1.0); UREA NITROGEN (BUN) 20 mg/dL (9-23)
[2016-10-20 09:18] VITALS: BP 112/70
[2016-10-20 11:38] VITALS: BP 100/74
[2016-10-20 15:54] VITALS: BP 118/65
[2016-10-20 21:00] VITALS: BP 116/69
[2016-10-21] VITALS (7 sets, daily range): BP systolic 108–143; BP diastolic 60–87
[2016-10-21 07:52] LABS: HEMATOCRIT 29.7 % (36.0-46.0); MCH 27.6 PG (29.0-34.0); MCHC 30.3 G/DL (30.0-36.0); MCV 91.1 FL (83-99); MEAN PLAT.VOLUME 10.6 uM^3 (9.5-12.4); PLATELET COUNT 265 K/uL (156-360); RBC DIS.WIDTH-CV 16.9 % (11.8-14.6); RBC DIS.WIDTH-SD 56.3 % (39-53); RED BLOOD COUNT 3.26 M/uL (3.80-5.20); WHITE BLOOD COUNT 20.2 K/uL (4.1-10.2)
[2016-10-21 07:53] LABS: ANION GAP 6 MEQ/L (2-14); CHLORIDE 114 MEQ/L (99-109); GFR ESTIMATE (CALCULATED) > 59 mL/min/; GLUCOSE 141 mg/dL (70-99); POTASSIUM 4.2 MEQ/L (3.7-5.4); SAMPLE HEMOLYSIS CHECK 0; SAMPLE ICTERIC CHECK 0; SAMPLE LIPEMIA CHECK 0; SODIUM 144 MEQ/L (136-147); UREA NITROGEN (BUN) 22 mg/dL (9-23)
[2016-10-21 10:03] LABS: ABS NEUTROPHIL COUNT 19.5; BAND NEUTROPHILS 3.5 % (0-8.0); EOSINOPHIL ABS CT 0; INSTRUMENT ABS NEUTROPHIL CT 18.6 K/uL; LYMPHOCYTES 0.9 % (15.0-45.0); PLATELET CLUMPS PRESENT - PLATELET COUNT APPEARS ADQ.; POIKILOCYTOSIS 1+; SMUDGE CELLS 0.9
[2016-10-22] VITALS (7 sets, daily range): BP systolic 132–154; BP diastolic 75–92
[2016-10-23 05:22] VITALS: BP 165/78
[2016-10-23 08:05] VITALS: BP 152/84
[2016-10-23 16:52] VITALS: BP 166/90
[2016-10-23 19:42] VITALS: BP 142/92
[2016-10-23 23:42] VITALS: BP 165/91
[2016-10-24 03:48] VITALS: BP 155/89
[2016-10-24 07:49] VITALS: BP 128/82
[2016-10-24 10:28] VITALS: BP 141/78
[2016-10-24] MEDS ORDERED: INVANZ1 GM IV (16:17)
[2016-10-24 16:47] VITALS: BP 155/86
== END 2016-10-24 20:37 | DRG 871 ==
LOC: EME 10:31 → EDOF 14:18 → 5EAST 14:18 → 4EAST 14:18 → 2EAST 14:18 → 4WEST 14:18 → 5EAST 17:19 → 4WEST 10-19 03:53 → 4EAST 10-19 21:30 → 2EAST 10-23 07:53
PROVIDERS: Emergency Medicine; Internal Medicine
PROC: 30233N1 Transfusion of Nonautologous Red Blood Cells into Peripheral Vein, Percutaneous Approach (ICD-10-PCS; principal; 2016-10-19)
DX: A41.9 Sepsis, unspecified organism (principal); R65.21 Severe sepsis with septic shock; N39.0 Urinary tract infection, site not specified; N10 Acute pyelonephritis; I42.9 Cardiomyopathy, unspecified; J44.1 Chronic obstructive pulmonary disease with (acute) exacerbation; I50.20 Unspecified systolic (congestive) heart failure; I95.89 Other hypotension; B37.0 Candidal stomatitis; Z68.1 Body mass index [BMI] 19.9 or less, adult; R00.0 Tachycardia, unspecified; R31.0 Gross hematuria; I25.10 Atherosclerotic heart disease of native coronary artery without angina pectoris; D64.9 Anemia, unspecified; B96.20 Unspecified Escherichia coli [E. coli] as the cause of diseases classified elsewhere; N28.1 Cyst of kidney, acquired; I10 Essential (primary) hypertension; G47.33 Obstructive sleep apnea (adult) (pediatric); Z99.81 Dependence on supplemental oxygen; E03.9 Hypothyroidism, unspecified; E78.5 Hyperlipidemia, unspecified; F41.9 Anxiety disorder, unspecified; K57.90 Diverticulosis of intestine, part unspecified, without perforation or abscess without bleeding; N39.3 Stress incontinence (female) (male); I25.2 Old myocardial infarction; Z87.891 Personal history of nicotine dependence
CPT/HCPCS: 71010; 74176; 76770; 76937; 80048; 80048 91; 80053; 81003; 83605; 84484; 85025; 85025 91; 86850; 86900; 86901; 86920; 87040; 87077; 87086; 87186; 87641; 87801; 94640; 94640 76; 94799; 97530 GP; 99202; 99281; 99285; C1894; J0696; J1335; J1650; J2405; J2920; J3260; J7030; J7040; J7050; J7512; P9016

== ENCOUNTER 2016-10-24 23:42 | Inpatient (IN) | payer OTHER ==
[~2016-10-24] VITALS: Ht 160 cm; Wt 50.7 kg
[~2016-10-24 23:42] MED LIST changes: +ACETAMINOPHEN325 M3 PO; +ALEVE220 M2 PO; +COLACE100 MG PO; +DULCOLAX10 MG PR; +FLEET ENEMA-AD118 ML PR; +INVANZ1 GM IV; +LEVO-T50 MCG PO; +LIPITOR40 MG PO; +LISINOPRIL5 MG PO; +LOW DOSE ASPIRI81 M1 PO; +MILK OF MAGN PO; +NAPROSYN500 MG PO; +PEPCID20 MG PO; +PERCOCET 5/31 TABLET PO; +PROVENTIL,2.5 MG/3 M IH; +REMERON15 M2 PO; +TESSALON200 MG PO; +TOPROL XL25 MG PO; +VITAMIN D32000 UNI1 PO; +XANAX0.5 MG PO
[2016-10-25 01:44] LABS: INTER. NORMALIZED RATIO 1.1; PTT 24.1 (25-32)
[2016-10-25 01:45] LABS: CHLORIDE 100 mEq/L (99-109); POTASSIUM 4.1 mEq/L (3.7-5.4); SODIUM 143 mEq/L (136-147)
[2016-10-25 01:46] LABS: GLUCOSE 106 mg/dL (70-99)
[2016-10-25 01:47] LABS: EOSINOPHIL (%) 0.1 % (0-5); HEMATOCRIT 33.3 % (36.0-46.0); IMMATURE GRANULOCYTE (%) 4.3 % (0.0-0.7); IMMATURE GRANULOCYTE COUNT 0.5 K/uL; INSTRUMENT ABS NEUTROPHIL CT 8.8 K/uL; LYMPHOCYTE COUNT 1.1 K/uL (1.0-2.8); MCH 27.7 PG (29.0-34.0); MCHC 31.8 G/DL (30.0-36.0); MCV 87.2 FL (83-99); MEAN PLAT.VOLUME 9.4 uM^3 (9.5-12.4); MONOCYTE (%) 9.6 % (3-12); MONOCYTE COUNT 1.1 K/uL (0-0.8); NEUTROPHIL (%) 76.2 % (45-76); NEUTROPHIL COUNT 8.8 K/uL (1.8-6.4); RBC DIS.WIDTH-CV 15.9 % (11.8-14.6); RBC DIS.WIDTH-SD 50.4 % (39-53); RED BLOOD COUNT 3.82 M/uL (3.80-5.20)
[2016-10-25 01:48] LABS: ANION GAP 9 MEQ/L (2-14)
[2016-10-25 01:50] LABS: GFR ESTIMATE (CALCULATED) > 59 mL/min/
[2016-10-25 01:51] LABS: UREA NITROGEN (BUN) 15 mg/dL (9-23)
[2016-10-25 01:53] LABS: PLATELET COUNT 501 K/uL (156-360); WHITE BLOOD COUNT 11.5 K/uL (4.1-10.2)
[2016-10-25 04:44] VITALS: BP 181/98
[2016-10-25 09:01] VITALS: BP 157/81
[2016-10-25 12:01] VITALS: BP 144/73
[2016-10-25 16:36] VITALS: BP 136/77
[2016-10-25 19:57] VITALS: BP 132/67
[2016-10-26 00:17] VITALS: BP 116/66
[2016-10-26 04:30] VITALS: BP 133/66
[2016-10-26 05:52] LABS: EOSINOPHIL COUNT 0.1 K/uL (0-0.3); HEMATOCRIT 30.2 % (36.0-46.0); IMMATURE GRANULOCYTE (%) 3.2 % (0.0-0.7); IMMATURE GRANULOCYTE COUNT 0.4 K/uL; INSTRUMENT ABS NEUTROPHIL CT 8.9 K/uL; LYMPHOCYTE COUNT 1.2 K/uL (1.0-2.8); MCH 27.6 PG (29.0-34.0); MCHC 31.1 G/DL (30.0-36.0); MCV 88.8 FL (83-99); MEAN PLAT.VOLUME 9.5 uM^3 (9.5-12.4); MONOCYTE (%) 9.7 % (3-12); MONOCYTE COUNT 1.1 K/uL (0-0.8); NEUTROPHIL COUNT 8.9 K/uL (1.8-6.4); PLATELET COUNT 500 K/uL (156-360); RBC DIS.WIDTH-CV 16.1 % (11.8-14.6); RBC DIS.WIDTH-SD 52.3 % (39-53); WHITE BLOOD COUNT 11.7 K/uL (4.1-10.2)
[2016-10-26 06:26] LABS: ANION GAP 4 MEQ/L (2-14); GFR ESTIMATE (CALCULATED) > 59 mL/min/; GLUCOSE 77 mg/dL (70-99); POTASSIUM 4.2 MEQ/L (3.7-5.4); SAMPLE HEMOLYSIS CHECK 0; SAMPLE ICTERIC CHECK 0; SAMPLE LIPEMIA CHECK 0; SODIUM 140 MEQ/L (136-147); UREA NITROGEN (BUN) 11 mg/dL (9-23)
[2016-10-26 06:27] LABS: ALKALINE PHOSPHATASE 88 IU/L (3-129); CHLORIDE 96 MEQ/L (99-109); TOTAL BILIRUBIN 0.5 MG/DL (0.0-1.0)
[2016-10-26 07:53] VITALS: BP 130/75
[2016-10-26 15:05] VITALS: BP 107/64
[2016-10-26 19:21] VITALS: BP 115/59
[2016-10-27 00:33] VITALS: BP 97/52
[2016-10-27 03:49] VITALS: BP 104/63
[2016-10-27 08:25] LABS: BASE EXCESS 16.9 mEq/L (-3 to +3); BICARBONATE 42.9 mEq/L (22-26); CARBOXY HGB 2.1 % (0-5); COMMENTS - BLOOD GASES C+; DEVICE NC; METHEMOGLOBIN 1.6 % (0-1.5); O2 FLOW 4 L/MIN; PCO2 59 mm Hg (35-45); PO2 78 mm Hg (80-100); SITE LR; TOTAL RESP RATE 18 resp/min; pH 7.47 (7.35-7.45)
[2016-10-27 11:00] VITALS: BP 114/62
[2016-10-27 11:54] VITALS: BP 114/62
[2016-10-27 21:08] VITALS: BP 95/63
[2016-10-28] VITALS (10 sets, daily range): BP systolic 97–148; BP diastolic 52–85
[2016-10-28 07:08] LABS: HEMATOCRIT 25.8 % (36.0-46.0)
[2016-10-29 04:44] VITALS: BP 120/76
[2016-10-29 05:43] LABS: EOSINOPHIL (%) 0.5 % (0-5); EOSINOPHIL COUNT 0.1 K/uL (0-0.3); HEMATOCRIT 28.6 % (36.0-46.0); IMMATURE GRANULOCYTE COUNT 0.2 K/uL; LYMPHOCYTE COUNT 1.2 K/uL (1.0-2.8); MCH 27.3 PG (29.0-34.0); MCHC 31.5 G/DL (30.0-36.0); MCV 86.7 FL (83-99); MEAN PLAT.VOLUME 9.7 uM^3 (9.5-12.4); MONOCYTE COUNT 1.7 K/uL (0-0.8); NEUTROPHIL (%) 79.2 % (45-76); PLATELET COUNT 550 K/uL (156-360); RBC DIS.WIDTH-CV 17.1 % (11.8-14.6); RBC DIS.WIDTH-SD 53.5 % (39-53); WHITE BLOOD COUNT 15.1 K/uL (4.1-10.2)
[2016-10-29 06:04] LABS: ALKALINE PHOSPHATASE 70 IU/L (3-129); ANION GAP 5 MEQ/L (2-14); CHLORIDE 99 MEQ/L (99-109); GFR ESTIMATE (CALCULATED) > 59 mL/min/; GLUCOSE 95 mg/dL (70-99); SAMPLE HEMOLYSIS CHECK 1; SAMPLE ICTERIC CHECK 0; SAMPLE LIPEMIA CHECK 0; SODIUM 138 MEQ/L (136-147); UREA NITROGEN (BUN) 11 mg/dL (9-23)
[2016-10-29 06:05] LABS: POTASSIUM 4.2 MEQ/L (3.7-5.4); TOTAL BILIRUBIN 0.7 MG/DL (0.0-1.0)
[2016-10-29 10:25] VITALS: BP 132/76
[2016-10-29 11:54] VITALS: BP 120/50
[2016-10-29 16:34] VITALS: BP 120/74
[2016-10-29 19:49] VITALS: BP 103/51
[2016-10-30] VITALS (7 sets, daily range): BP systolic 90–108; BP diastolic 53–68
[2016-10-31 03:37] VITALS: BP 105/52
[2016-10-31 07:47] LABS: HEMATOCRIT 30.3 % (36.0-46.0); MCH 27.2 PG (29.0-34.0); MCHC 30.4 G/DL (30.0-36.0); MCV 89.6 FL (83-99); MEAN PLAT.VOLUME 9.5 uM^3 (9.5-12.4); PLATELET COUNT 644 K/uL (156-360); RBC DIS.WIDTH-CV 16.1 % (11.8-14.6); RBC DIS.WIDTH-SD 52.8 % (39-53); RED BLOOD COUNT 3.38 M/uL (3.80-5.20); WHITE BLOOD COUNT 11.2 K/uL (4.1-10.2)
[2016-10-31 08:09] LABS: ANION GAP 9 MEQ/L (2-14); CHLORIDE 102 MEQ/L (99-109); GFR ESTIMATE (CALCULATED) > 59 mL/min/; GLUCOSE 99 mg/dL (70-99); POTASSIUM 4.6 MEQ/L (3.7-5.4); SAMPLE HEMOLYSIS CHECK 0; SAMPLE ICTERIC CHECK 0; SAMPLE LIPEMIA CHECK 0; SODIUM 144 MEQ/L (136-147); UREA NITROGEN (BUN) 11 mg/dL (9-23)
[2016-10-31 08:31] LABS: EOSINOPHIL COUNT 0.1 K/uL (0-0.3); IMMATURE GRANULOCYTE (%) 1.2 % (0.0-0.7); IMMATURE GRANULOCYTE COUNT 0.1 K/uL; INSTRUMENT ABS NEUTROPHIL CT 8.2 K/uL; LYMPHOCYTE COUNT 1.4 K/uL (1.0-2.8); MONOCYTE (%) 12.5 % (3-12); MONOCYTE COUNT 1.4 K/uL (0-0.8); NEUTROPHIL (%) 72.7 % (45-76); NEUTROPHIL COUNT 8.2 K/uL (1.8-6.4)
[2016-10-31 08:44] VITALS: BP 102/59
[2016-10-31 12:30] VITALS: BP 102/74
[2016-10-31] MEDS ORDERED: INVANZ1 GM IV (13:40)
[2016-10-31] MEDS ORDERED: TRIPLE ANTIB28.35 GM TP (13:45)
== END 2016-10-31 16:03 | DRG 480 ==
LOC: EME 23:42 → 3EAST 10-25 03:00 → EDOF 10-25 03:00 → 3EAST 10-25 04:25
PROVIDERS: Anesthesiology Pain Medicine; Emergency Medicine; Internal Medicine; Orthopaedic Surgery
PROC: 0QS734Z Reposition Left Upper Femur with Internal Fixation Device, Percutaneous Approach (ICD-10-PCS; principal; 2016-10-27)
PROC: 30233N1 Transfusion of Nonautologous Red Blood Cells into Peripheral Vein, Percutaneous Approach (ICD-10-PCS; 2016-10-28)
DX: S72.142A Displaced intertrochanteric fracture of left femur, initial encounter for closed fracture (principal); A41.9 Sepsis, unspecified organism; N10 Acute pyelonephritis; J96.11 Chronic respiratory failure with hypoxia; D62 Acute posthemorrhagic anemia; I50.20 Unspecified systolic (congestive) heart failure; I42.9 Cardiomyopathy, unspecified; W06.XXXA Fall from bed, initial encounter; J44.9 Chronic obstructive pulmonary disease, unspecified; I25.10 Atherosclerotic heart disease of native coronary artery without angina pectoris; E78.5 Hyperlipidemia, unspecified; G47.33 Obstructive sleep apnea (adult) (pediatric); E03.9 Hypothyroidism, unspecified; F41.9 Anxiety disorder, unspecified; Z60.2 Problems related to living alone; Y92.122 Bedroom in nursing home as the place of occurrence of the external cause; Z99.81 Dependence on supplemental oxygen; I25.2 Old myocardial infarction; Z88.0 Allergy status to penicillin; Z79.82 Long term (current) use of aspirin; Z87.891 Personal history of nicotine dependence
CPT/HCPCS: 36600; 71010; 73030; 73502; 76000; 80048; 80053; 82803; 83605; 85014; 85018; 85025; 85610; 85730; 86850; 86900; 86901; 86920; 87040; 93005; 94640; 94640 76; 94760; 94799; 97530 GP; 99202; 99281; 99285; C1713; J0690; J1170; J1335; J1650; J1956; J2270; J2405; J2765; J3010; J3370; J7050; J7120; P9040

== ENCOUNTER 2017-07-03 04:18 | Emergency (ER) | payer OTHER ==
[~2017-07-03] VITALS: Ht 157.5 cm; Wt 48.8 kg
[~2017-07-03 04:18] MED LIST changes: +TRIPLE ANTIB28.35 GM TP
[2017-07-03 07:24] VITALS: BP 112/70
== END 2017-07-03 07:25 | disposition home or self-care (01) ==
LOC: EME → EDBD 04:18 → EME 04:18
DX: M54.2 Cervicalgia (principal); M79.601 Pain in right arm; M79.602 Pain in left arm; M54.9 Dorsalgia, unspecified; J44.9 Chronic obstructive pulmonary disease, unspecified; I10 Essential (primary) hypertension; E03.9 Hypothyroidism, unspecified; F32.9 Major depressive disorder, single episode, unspecified; F41.9 Anxiety disorder, unspecified; I25.2 Old myocardial infarction; Z87.442 Personal history of urinary calculi; Z79.82 Long term (current) use of aspirin; Z87.891 Personal history of nicotine dependence; Z88.0 Allergy status to penicillin; Z91.041 Radiographic dye allergy status; Z88.1 Allergy status to other antibiotic agents
CPT/HCPCS: 99281; 99285; J1100

== ENCOUNTER 2017-07-29 14:59 | Inpatient (IN) | payer OTHER ==
[~2017-07-29] VITALS: Ht 157.5 cm; Wt 52.8 kg
[2017-07-29 17:48] LABS: BASOPHIL (%) 0.1 % (0-1); EOSINOPHIL COUNT 0.1 K/uL (0-0.3); HEMATOCRIT 24.7 % (36.0-46.0); IMMATURE GRANULOCYTE (%) 0.3 % (0.0-0.7); LYMPHOCYTE (%) 10.9 % (15-42); LYMPHOCYTE COUNT 0.7 K/uL (1.0-2.8); MCH 17.8 PG (29.0-34.0); MCHC 27.5 G/DL (30.0-36.0); MCV 64.7 FL (83-99); MONOCYTE (%) 16.5 % (3-12); MONOCYTE COUNT 1.1 K/uL (0-0.8); NEUTROPHIL (%) 71.2 % (45-76); NEUTROPHIL COUNT 4.8 K/uL (1.8-6.4); PLATELET COUNT 572 K/uL (156-360); RBC DIS.WIDTH-CV 19.4 % (11.8-14.6); RBC DIS.WIDTH-SD 44.2 % (39-53); RED BLOOD COUNT 3.82 M/uL (3.80-5.20); WHITE BLOOD COUNT 6.8 K/uL (4.1-10.2)
[2017-07-29 17:52] LABS: ALBUMIN 4.1 g/dL (3.2-4.8); CHLORIDE 106 mEq/L (99-109); SODIUM 138 mEq/L (136-147)
[2017-07-29 17:55] LABS: GLUCOSE 110 mg/dL (70-99); TOTAL PROTEIN 7.2 g/dL (6.4-8.3)
[2017-07-29 17:56] LABS: TOTAL BILIRUBIN 0.4 mg/dL (0.0-1.0)
[2017-07-29 17:58] LABS: ALKALINE PHOSPHATASE 79 IU/L (3-129); CREATININE 0.7 mg/dL (0.6-1.3); GFR ESTIMATE (CALCULATED) > 59 mL/min/
[2017-07-29 17:59] LABS: UREA NITROGEN (BUN) 9 mg/dL (9-23)
[2017-07-29 18:00] LABS: AST (GOT) 17 IU/L (2-34)
[2017-07-29 18:01] LABS: APPEARANCE CLEAR ((CLEAR)); BILIRUBIN NEGATIVE; BLOOD NEGATIVE; COLOR STRAW ((YELLOW)); GLUCOSE (STRIP) NEGATIVE; KETONES 5; LEUKOCYTES NEGATIVE; NITRITE NEGATIVE; PROTEIN (STRIP) NEGATIVE; SPECIFIC GRAVITY 1.008 (1.000-1.030); UCUL ADDED? NO; UROBILINOGEN 0.2 MG/DL (0.2-1.0)
[2017-07-29 18:01] LABS: ALT (GPT) 8 IU/L (3-49)
[2017-07-29 18:26] LABS: HEMOGLOBIN 6.8 G/DL (11.9-15.5)
[2017-07-29] MEDS ORDERED: VITAMIN B-122000 MC1 PO (20:30)
[2017-07-29] MEDS ORDERED: SYNTHROID75 MCG PO (20:31)
[2017-07-29] MEDS ORDERED: SYMBICORT60 INHALAT IH (20:34)
[2017-07-29 20:47] LABS: URIC ACID 2.4 mg/dL (3.1-9.2)
[2017-07-29 21:11] LABS: C-REACTIVE PROTEIN 31.7 MG/L (0-10); IRON 12 MCG/DL (35-150); TRANSFERRIN (TIBC) 259.9 mg/dL (215-380); TRANSFERRIN SATUR. 5 % (20-55)
[2017-07-29 21:11] LABS: C-REACTIVE PROTEIN 30.7 MG/L (0-10)
[2017-07-29 21:27] LABS: URIC ACID 2.2 mg/dL (3.1-9.2)
[2017-07-29 22:03] LABS: FERRITIN 5 NG/ML (10-291)
[2017-07-29 22:56] VITALS: BP 141/76
[2017-07-30] VITALS (11 sets, daily range): BP systolic 83–129; BP diastolic 50–66
[2017-07-30 09:27] LABS: HEMOGLOBIN 9.8 G/DL (11.9-15.5); MCV 70.8 FL (83-99)
[2017-07-30 10:36] LABS: ERTH.SED.RATE 57 MM/HR (0-30)
[2017-07-30 14:47] LABS: STOOL OCCULT BLD 1ST SPECIMEN NEGATIVE
[2017-07-31 03:55] VITALS: BP 99/57
[2017-07-31 07:21] LABS: HEMATOCRIT 31.4 % (36.0-46.0); HEMOGLOBIN 9.1 G/DL (11.9-15.5); MCH 20.6 PG (29.0-34.0); PLATELET COUNT 512 K/uL (156-360); RBC DIS.WIDTH-CV 22.2 % (11.8-14.6); RBC DIS.WIDTH-SD 55.6 % (39-53); RED BLOOD COUNT 4.42 M/uL (3.80-5.20); WHITE BLOOD COUNT 5.1 K/uL (4.1-10.2)
[2017-07-31 07:44] LABS: CHLORIDE 102 MEQ/L (99-109); CREATININE 0.8 MG/DL (0.6-1.3); GFR ESTIMATE (CALCULATED) > 59 mL/min/; GLUCOSE 119 mg/dL (70-99); POTASSIUM 4.4 MEQ/L (3.7-5.4); SODIUM 142 MEQ/L (136-147); UREA NITROGEN (BUN) 18 mg/dL (9-23)
[2017-07-31 08:04] VITALS: BP 119/96
[2017-07-31 11:44] VITALS: BP 105/67
[2017-07-31 14:39] LABS: HEPATITIS B SURFACE ANTIGEN Nonreactive; HEPATITIS C ANTIBODY Nonreactive
[2017-07-31 14:40] LABS: ANTI-HEPATITIS A VIRUS (IGM) Nonreactive
[2017-07-31 14:41] LABS: ANTI-HEPATITIS B CORE (IGM) Nonreactive
[2017-07-31 16:24] VITALS: BP 139/65
[2017-07-31 20:34] VITALS: BP 109/59
[2017-08-01 00:12] VITALS: BP 127/65
[2017-08-01 04:13] VITALS: BP 121/62
[2017-08-01 07:07] LABS: HEMOGLOBIN 8.2 G/DL (11.9-15.5); MCHC 28.3 G/DL (30.0-36.0); MCV 70.7 FL (83-99); PLATELET COUNT 484 K/uL (156-360); RBC DIS.WIDTH-CV 22.9 % (11.8-14.6); RBC DIS.WIDTH-SD 57.1 % (39-53); WHITE BLOOD COUNT 7.2 K/uL (4.1-10.2)
[2017-08-01 07:19] VITALS: BP 146/67
[2017-08-01 11:29] LABS: HEMATOCRIT 29.5 % (36.0-46.0); HEMOGLOBIN 8.3 G/DL (11.9-15.5); MCV 71.1 FL (83-99)
[2017-08-01 12:03] VITALS: BP 113/58
[2017-08-01 20:08] VITALS: BP 136/69
[2017-08-02 00:25] VITALS: BP 155/74
[2017-08-02 08:17] VITALS: BP 143/79
[2017-08-02 09:55] LABS: HEMATOCRIT 33.6 % (36.0-46.0); HEMOGLOBIN 9.4 G/DL (11.9-15.5); MCH 19.8 PG (29.0-34.0); MCV 70.7 FL (83-99); PLATELET COUNT 511 K/uL (156-360); RBC DIS.WIDTH-CV 24.9 % (11.8-14.6); RBC DIS.WIDTH-SD 59.6 % (39-53); RED BLOOD COUNT 4.75 M/uL (3.80-5.20); WHITE BLOOD COUNT 7.3 K/uL (4.1-10.2)
[2017-08-02 10:41] LABS: CHLORIDE 99 MEQ/L (99-109); CREATININE 0.6 MG/DL (0.6-1.3); FERRITIN 735 NG/ML (10-291); GFR ESTIMATE (CALCULATED) > 59 mL/min/; IRON 336 MCG/DL (35-150); POTASSIUM 3.7 MEQ/L (3.7-5.4); SODIUM 141 MEQ/L (136-147); TRANSFERRIN (TIBC) 234.1 mg/dL (215-380); UREA NITROGEN (BUN) 13 mg/dL (9-23)
[2017-08-02 10:43] LABS: GLUCOSE 89 mg/dL (70-99); TRANSFERRIN SATUR. 144 % (20-55)
[2017-08-02 12:48] VITALS: BP 160/93
[2017-08-02 15:55] VITALS: BP 152/78
[2017-08-02 19:58] VITALS: BP 149/70
[2017-08-03 00:50] VITALS: BP 141/69
[2017-08-03 04:00] VITALS: BP 143/89
[2017-08-03 07:15] LABS: CHLORIDE 101 MEQ/L (99-109); CREATININE 0.6 MG/DL (0.6-1.3); GFR ESTIMATE (CALCULATED) > 59 mL/min/; GLUCOSE 88 mg/dL (70-99); POTASSIUM 4.1 MEQ/L (3.7-5.4); SODIUM 141 MEQ/L (136-147); UREA NITROGEN (BUN) 18 mg/dL (9-23)
[2017-08-03 08:27] VITALS: BP 138/92
[2017-08-03 10:25] LABS: URIC ACID 2.5 mg/dL (3.1-9.2)
[2017-08-03 12:14] VITALS: BP 138/67
[2017-08-03] MEDS ORDERED: CEFDINIR300 MG PO (13:26)
[2017-08-03] MEDS ORDERED: VENTOLIN HFA18 GM IH (13:26)
[2017-08-03] MEDS ORDERED: COLCHICINE0.6 M1 PO (13:26)
[2017-08-03] MEDS ORDERED: PREDNISONE10 MG PO ×2 (13:26→14:43)
[2017-08-03] MEDS ORDERED: GUAIFENESI100 MG/5 M PO (13:26)
== END 2017-08-03 17:38 | disposition home or self-care (01) | DRG 191 ==
LOC: EME 14:59 → 5SOUTH 19:32 → EDOF 19:32 → ENRESERV 19:48 → 5SOUTH 22:21 → ENPENDDIS 08-03 → 5SOUTH 08-03 17:38
PROVIDERS: Internal Medicine; Physician Assistant; Physician Assistant Medical
PROC: 30233N1 Transfusion of Nonautologous Red Blood Cells into Peripheral Vein, Percutaneous Approach (ICD-10-PCS; principal; 2017-07-30)
DX: J44.0 Chronic obstructive pulmonary disease with (acute) lower respiratory infection (principal); J20.9 Acute bronchitis, unspecified; J96.11 Chronic respiratory failure with hypoxia; I11.0 Hypertensive heart disease with heart failure; I50.22 Chronic systolic (congestive) heart failure; Z99.81 Dependence on supplemental oxygen; B37.0 Candidal stomatitis; R64 Cachexia; J44.1 Chronic obstructive pulmonary disease with (acute) exacerbation; M10.9 Gout, unspecified; R79.89 Other specified abnormal findings of blood chemistry; R91.1 Solitary pulmonary nodule; I25.10 Atherosclerotic heart disease of native coronary artery without angina pectoris; I25.5 Ischemic cardiomyopathy; K21.9 Gastro-esophageal reflux disease without esophagitis; G47.33 Obstructive sleep apnea (adult) (pediatric); D50.9 Iron deficiency anemia, unspecified; E03.9 Hypothyroidism, unspecified; K59.00 Constipation, unspecified; F32.9 Major depressive disorder, single episode, unspecified; F41.9 Anxiety disorder, unspecified; G89.29 Other chronic pain; M54.5 Low back pain; Z91.19 Patient's noncompliance with other medical treatment and regimen; Z68.1 Body mass index [BMI] 19.9 or less, adult; I25.2 Old myocardial infarction; Z87.891 Personal history of nicotine dependence; Z79.02 Long term (current) use of antithrombotics/antiplatelets; Z79.51 Long term (current) use of inhaled steroids; Z79.82 Long term (current) use of aspirin; Z87.442 Personal history of urinary calculi
CPT/HCPCS: 71045; 71250; 73110; 73522; 74176; 80048; 80053; 80074; 81003; 82272; 82607; 82728; 83540; 84466; 84550; 85014; 85018; 85025; 85027; 85651; 86038; 86140; 86430; 86850; 86870; 86900; 86901; 86905; 86920; 87040; 87086; 87502; 93005; 94640; 94640 76; 94667; 94668; 94799; 99202; 99281; 99285; J0690; J0696; J1200; J1756; J1885; J2765; J2930; J7050; J7512; P9016

== ENCOUNTER 2017-08-06 15:55 | Emergency (ER) | payer OTHER ==
[~2017-08-06] VITALS: Ht 157.5 cm; Wt 45.5 kg
[~2017-08-06 15:55] MED LIST changes: +CEFDINIR300 MG PO; +COLCHICINE0.6 M1 PO; +GUAIFENESI100 MG/5 M PO; +SYMBICORT60 INHALAT IH; +SYNTHROID75 MCG PO; +VITAMIN B-122000 MC1 PO
[2017-08-06 17:50] LABS: HEMATOCRIT 35.4 % (36.0-46.0); HEMOGLOBIN 10.1 G/DL (11.9-15.5); MCH 21.2 PG (29.0-34.0); MCHC 28.5 G/DL (30.0-36.0); MCV 74.2 FL (83-99); PLATELET COUNT 545 K/uL (156-360); RBC DIS.WIDTH-CV 28.9 % (11.8-14.6); RBC DIS.WIDTH-SD 71.5 % (39-53); RED BLOOD COUNT 4.77 M/uL (3.80-5.20); WHITE BLOOD COUNT 10.6 K/uL (4.1-10.2)
[2017-08-06 18:12] LABS: CHLORIDE 102 MEQ/L (99-109); POTASSIUM 4.3 MEQ/L (3.7-5.4); SODIUM 141 MEQ/L (136-147); TOTAL BILIRUBIN 0.3 MG/DL (0.0-1.0)
[2017-08-06 18:18] LABS: ALKALINE PHOSPHATASE 62 IU/L (3-129); ALT (GPT) 10 IU/L (3-49); AST (GOT) 13 IU/L (2-34); CREATININE 0.7 MG/DL (0.6-1.3); GFR ESTIMATE (CALCULATED) > 59 mL/min/; GLUCOSE 112 mg/dL (70-99); LIPASE 7 U/L (1.0-51.0); TOTAL PROTEIN 7.1 G/DL (6.4-8.3); UREA NITROGEN (BUN) 19 mg/dL (9-23)
[2017-08-06 19:02] LABS: APPEARANCE CLEAR ((CLEAR)); BILIRUBIN NEGATIVE; BLOOD NEGATIVE; COLOR YELLOW ((YELLOW)); GLUCOSE (STRIP) 50; KETONES 5; LEUKOCYTES NEGATIVE; NITRITE NEGATIVE; PROTEIN (STRIP) 30; SPECIFIC GRAVITY 1.016 (1.000-1.030); UCUL ADDED? NO; UROBILINOGEN 0.2 MG/DL (0.2-1.0)
[2017-08-06 22:20] VITALS: BP 135/90
== END 2017-08-06 22:58 | disposition home or self-care (01) ==
LOC: EME 15:55
PROVIDERS: Emergency Medicine
DX: R10.31 Right lower quadrant pain (principal); J44.1 Chronic obstructive pulmonary disease with (acute) exacerbation; I10 Essential (primary) hypertension; K21.9 Gastro-esophageal reflux disease without esophagitis; E03.9 Hypothyroidism, unspecified; F32.9 Major depressive disorder, single episode, unspecified; F41.9 Anxiety disorder, unspecified; I25.2 Old myocardial infarction; Z87.891 Personal history of nicotine dependence; Z79.82 Long term (current) use of aspirin; Z88.0 Allergy status to penicillin; Z88.1 Allergy status to other antibiotic agents; Z88.8 Allergy status to other drugs, medicaments and biological substances; Z91.041 Radiographic dye allergy status
CPT/HCPCS: 80053; 81003; 83690; 85027; 94640; 99281; 99285

== ENCOUNTER 2018-01-25 04:42 | Observation (INO) | payer OTHER ==
[2018-01-25] VITALS (8 sets, daily range): BP systolic 105–146; BP diastolic 59–76
[~2018-01-25] VITALS: Ht 157.5 cm; Wt 54.6 kg
[~2018-01-25 04:42] MED LIST changes: +ACETAMINOPHEN325 M1 PO; -ACETAMINOPHEN325 M3 PO; +NICOTINE PATCH1 EAC1 TD; -NICOTINE PATCH1 EAC2 TD; -PEPCID20 MG PO; +PEPCID40 MG PO
[2018-01-25 08:13] LABS: HEMATOCRIT 25.9 % (36.0-46.0); HEMOGLOBIN 7.4 G/DL (11.9-15.5); MCH 21.6 PG (29.0-34.0); MCHC 28.6 G/DL (30.0-36.0); MCV 75.5 FL (83-99); PLATELET COUNT 488 K/uL (156-360); RBC DIS.WIDTH-CV 17.5 % (11.8-14.6); RBC DIS.WIDTH-SD 47.8 % (39-53); RED BLOOD COUNT 3.43 M/uL (3.80-5.20); WHITE BLOOD COUNT 8.6 K/uL (4.1-10.2)
[2018-01-25 08:35] LABS: APPEARANCE CLEAR ((CLEAR)); BILIRUBIN NEGATIVE; BLOOD NEGATIVE; COLOR STRAW ((YELLOW)); GLUCOSE (STRIP) NEGATIVE; KETONES NEGATIVE; LEUKOCYTES TRACE; NITRITE NEGATIVE; PROTEIN (STRIP) NEGATIVE; UROBILINOGEN 0.2 MG/DL (0.2-1.0)
[2018-01-25 08:39] LABS: CHLORIDE 104 MEQ/L (99-109); CREATININE 0.6 MG/DL (0.6-1.3); GFR ESTIMATE (CALCULATED) > 59 mL/min/; GLUCOSE 98 mg/dL (70-99); POTASSIUM 3.7 MEQ/L (3.7-5.4); SODIUM 141 MEQ/L (136-147); UREA NITROGEN (BUN) 16 mg/dL (9-23)
[2018-01-25 08:47] LABS: BACTERIA RARE /HPF; EPITHELIAL CELLS RARE /HPF; MUCUS TRACE /LPF; RED BLOOD CELLS 0-5 /HPF (0-5); UCUL ADDED? NO; WHITE BLOOD CELLS 0-5 /HPF (0-5)
[2018-01-25 09:46] LABS: TROP-I INTERPRETATION NEGATIVE; TROPONIN-I < 0.01 ng/mL (0.0-0.30)
[2018-01-25] MEDS ORDERED: PREDNISONE10 MG PO (12:01)
[2018-01-25] MEDS ORDERED: XANAX0.5 MG PO (12:05)
[2018-01-25 14:35] LABS: PTT 27.3 SEC (25-37)
[2018-01-25 14:46] LABS: C-REACTIVE PROTEIN 14.2 MG/L (0-10)
[2018-01-25 14:49] LABS: IRON 11 MCG/DL (35-150); TRANSFERRIN (TIBC) 290.2 mg/dL (215-380); TRANSFERRIN SATUR. 4 % (20-55)
[2018-01-25 16:56] LABS: FERRITIN 5 NG/ML (10-291)
[2018-01-25 17:16] LABS: FOLIC ACID (FOLATE) > 22.0 NG/ML (5.0-22.0)
[2018-01-25 17:31] LABS: CREATINE KINASE 74 IU/L (1-294)
[2018-01-26 03:41] VITALS: BP 123/69
[2018-01-26 05:25] LABS: HEMATOCRIT 28.5 % (36.0-46.0); HEMOGLOBIN 8.3 G/DL (11.9-15.5); MCH 22.6 PG (29.0-34.0); MCHC 29.1 G/DL (30.0-36.0); MCV 77.4 FL (83-99); PLATELET COUNT 508 K/uL (156-360); RBC DIS.WIDTH-CV 18.6 % (11.8-14.6); RBC DIS.WIDTH-SD 51.9 % (39-53); RED BLOOD COUNT 3.68 M/uL (3.80-5.20); WHITE BLOOD COUNT 7.8 K/uL (4.1-10.2)
[2018-01-26 05:53] LABS: ALBUMIN 3.5 G/DL (3.2-4.8); ALKALINE PHOSPHATASE 55 IU/L (3-129); ALT (GPT) 10 IU/L (3-49); AST (GOT) 12 IU/L (2-34); CHLORIDE 104 MEQ/L (99-109); CREATININE 0.7 MG/DL (0.6-1.3); GFR ESTIMATE (CALCULATED) > 59 mL/min/; GLUCOSE 100 mg/dL (70-99); POTASSIUM 3.9 MEQ/L (3.7-5.4); SODIUM 142 MEQ/L (136-147); TOTAL BILIRUBIN 0.3 MG/DL (0.0-1.0); TOTAL PROTEIN 5.9 G/DL (6.4-8.3); UREA NITROGEN (BUN) 19 mg/dL (9-23)
[2018-01-26 07:37] VITALS: BP 126/58
[2018-01-26] MEDS ORDERED: FERROUS SULFAT325 MG PO (09:22)
[2018-01-26] MEDS ORDERED: CYANOCOBALAM1000 MCG PO (09:23)
[2018-01-26] MEDS ORDERED: GABAPENTIN300 MG PO (09:23)
[2018-01-26 12:37] VITALS: BP 143/69
[2018-01-26 15:37] LABS: CREATINE KINASE 82 IU/L (1-294); HIGH-SENS C-REACTIVE PROTEIN 1.75 MG/DL (0.02-0.20)
[2018-01-26 16:20] VITALS: BP 137/87
[2018-01-26 19:57] VITALS: BP 106/55
[2018-01-26 23:57] VITALS: BP 95/55
[2018-01-27 04:00] VITALS: BP 105/55
[2018-01-27 05:25] LABS: BASOPHIL (%) 0.2 % (0-1); EOSINOPHIL (%) 1.2 % (0-5); EOSINOPHIL COUNT 0.1 K/uL (0-0.3); HEMATOCRIT 28.7 % (36.0-46.0); HEMOGLOBIN 8.1 G/DL (11.9-15.5); IMMATURE GRANULOCYTE (%) 0.2 % (0.0-0.7); LYMPHOCYTE (%) 19.5 % (15-42); LYMPHOCYTE COUNT 1.6 K/uL (1.0-2.8); MCH 22.1 PG (29.0-34.0); MCHC 28.2 G/DL (30.0-36.0); MCV 78.4 FL (83-99); MONOCYTE (%) 11.8 % (3-12); NEUTROPHIL (%) 67.1 % (45-76); NEUTROPHIL COUNT 5.4 K/uL (1.8-6.4); PLATELET COUNT 493 K/uL (156-360); RBC DIS.WIDTH-CV 18.9 % (11.8-14.6); RBC DIS.WIDTH-SD 53.2 % (39-53); RED BLOOD COUNT 3.66 M/uL (3.80-5.20); WHITE BLOOD COUNT 8.1 K/uL (4.1-10.2)
[2018-01-27 06:00] LABS: CHLORIDE 103 MEQ/L (99-109); CREATININE 0.8 MG/DL (0.6-1.3); GFR ESTIMATE (CALCULATED) > 59 mL/min/; GLUCOSE 108 mg/dL (70-99); POTASSIUM 3.8 MEQ/L (3.7-5.4); SODIUM 140 MEQ/L (136-147); UREA NITROGEN (BUN) 17 mg/dL (9-23)
[2018-01-27 07:59] VITALS: BP 124/79
== END 2018-01-27 13:30 | disposition home or self-care (01) ==
LOC: EME 04:42 → EDOF 13:12 → 4SOUTH 13:12 → EDOF 13:12 → ENRESERV 13:14 → 4SOUTH 13:47
PROVIDERS: Internal Medicine; Nurse Practitioner Family; Physician Assistant Medical
PROC: 30233N1 Transfusion of Nonautologous Red Blood Cells into Peripheral Vein, Percutaneous Approach (ICD-10-PCS; principal; 2018-01-25)
DX: G62.9 Polyneuropathy, unspecified (principal); M79.606 Pain in leg, unspecified; M79.605 Pain in left leg; M79.604 Pain in right leg; R26.89 Other abnormalities of gait and mobility; Z60.2 Problems related to living alone; E53.8 Deficiency of other specified B group vitamins; D50.9 Iron deficiency anemia, unspecified; Z79.52 Long term (current) use of systemic steroids; J96.11 Chronic respiratory failure with hypoxia; J44.9 Chronic obstructive pulmonary disease, unspecified; F17.200 Nicotine dependence, unspecified, uncomplicated; Z99.81 Dependence on supplemental oxygen; G47.33 Obstructive sleep apnea (adult) (pediatric); I25.10 Atherosclerotic heart disease of native coronary artery without angina pectoris; I11.0 Hypertensive heart disease with heart failure; I50.9 Heart failure, unspecified; I25.2 Old myocardial infarction; K21.9 Gastro-esophageal reflux disease without esophagitis; F32.9 Major depressive disorder, single episode, unspecified; F41.0 Panic disorder [episodic paroxysmal anxiety]; E03.9 Hypothyroidism, unspecified; M81.0 Age-related osteoporosis without current pathological fracture; G89.29 Other chronic pain; M54.9 Dorsalgia, unspecified; Z86.73 Personal history of transient ischemic attack (TIA), and cerebral infarction without residual deficits; R91.8 Other nonspecific abnormal finding of lung field; Z87.11 Personal history of peptic ulcer disease; Z88.0 Allergy status to penicillin; Z88.1 Allergy status to other antibiotic agents; Z88.8 Allergy status to other drugs, medicaments and biological substances; Z91.041 Radiographic dye allergy status; Z91.048 Other nonmedicinal substance allergy status
CPT/HCPCS: 73564; 80048; 80053; 81003; 82085 90; 82272; 82550; 82607; 82728; 82746; 83540; 84439; 84466; 84481; 84484; 85025; 85027; 85610; 85651; 85730; 86140; 86141; 86850; 86870; 86900; 86901; 86905; 86920; 93005; 94640; 94799; 97530 GO; 97530 GP; 99281; 99285; G0378; G8987 GO CJ; G8988 CI; J2405; J2765; P9016

== ENCOUNTER 2018-01-28 14:11 | Emergency (ER) | payer OTHER ==
[~2018-01-28] VITALS: Ht 157.5 cm; Wt 55.0 kg
[~2018-01-28 14:11] MED LIST changes: +FERROUS SULFAT325 MG PO; +GABAPENTIN300 MG PO
[2018-01-28 15:29] LABS: HEMATOCRIT 31.3 % (36.0-46.0); HEMOGLOBIN 9.1 G/DL (11.9-15.5); MCH 22.9 PG (29.0-34.0); MCHC 29.1 G/DL (30.0-36.0); MCV 78.6 FL (83-99); PLATELET COUNT 551 K/uL (156-360); RBC DIS.WIDTH-CV 19.7 % (11.8-14.6); RBC DIS.WIDTH-SD 54.4 % (39-53); RED BLOOD COUNT 3.98 M/uL (3.80-5.20); WHITE BLOOD COUNT 9.9 K/uL (4.1-10.2)
[2018-01-28 15:36] LABS: ALBUMIN 3.9 g/dL (3.2-4.8)
[2018-01-28 15:37] LABS: CHLORIDE 102 mEq/L (99-109); SODIUM 143 mEq/L (136-147)
[2018-01-28 15:39] LABS: GLUCOSE 115 mg/dL (70-99); TOTAL PROTEIN 6.7 g/dL (6.4-8.3)
[2018-01-28 15:41] LABS: TOTAL BILIRUBIN 0.3 mg/dL (0.0-1.0)
[2018-01-28 15:42] LABS: ALKALINE PHOSPHATASE 87 IU/L (3-129)
[2018-01-28 15:43] LABS: CREATININE 0.8 mg/dL (0.6-1.3); GFR ESTIMATE (CALCULATED) > 59 mL/min/
[2018-01-28 15:44] LABS: AST (GOT) 14 IU/L (2-34); UREA NITROGEN (BUN) 17 mg/dL (9-23)
[2018-01-28 15:46] LABS: ALT (GPT) 11 IU/L (3-49); POTASSIUM 4.6 mEq/L (3.7-5.4)
[2018-01-28 16:15] LABS: CREATINE KINASE 67 IU/L (1-294)
[2018-01-28 21:15] VITALS: BP 138/72
== END 2018-01-28 21:16 | disposition home or self-care (01) ==
LOC: EME 14:11
PROVIDERS: Emergency Medicine
DX: M79.605 Pain in left leg (principal); M79.604 Pain in right leg; J44.9 Chronic obstructive pulmonary disease, unspecified; Z99.81 Dependence on supplemental oxygen; F32.9 Major depressive disorder, single episode, unspecified; E78.5 Hyperlipidemia, unspecified; I10 Essential (primary) hypertension; I25.2 Old myocardial infarction; K21.9 Gastro-esophageal reflux disease without esophagitis; D50.9 Iron deficiency anemia, unspecified; F41.0 Panic disorder [episodic paroxysmal anxiety]; Z88.0 Allergy status to penicillin; Z88.8 Allergy status to other drugs, medicaments and biological substances; Z87.891 Personal history of nicotine dependence
CPT/HCPCS: 80053; 82550; 85027; 94640; 99281; 99285; J7030

== ENCOUNTER 2018-03-09 20:38 | Observation (INO) | payer OTHER ==
[~2018-03-09] VITALS: Ht 152.4 cm; Wt 55.7 kg
[2018-03-09 21:49] LABS: HEMATOCRIT 44.2 % (36.0-46.0); MCHC 29.6 G/DL (30.0-36.0); MCV 84.5 FL (83-99); PLATELET COUNT 446 K/uL (156-360); RBC DIS.WIDTH-CV 24.4 % (11.8-14.6); RBC DIS.WIDTH-SD 71.9 % (39-53); WHITE BLOOD COUNT 8.6 K/uL (4.1-10.2)
[2018-03-09 21:55] LABS: INTER. NORMALIZED RATIO 0.9
[2018-03-09 21:56] LABS: BASOPHIL (%) 0.5 % (0-1); EOSINOPHIL (%) 0.9 % (0-5); EOSINOPHIL COUNT 0.1 K/uL (0-0.3); IMMATURE GRANULOCYTE (%) 0.1 % (0.0-0.7); LYMPHOCYTE (%) 20.6 % (15-42); LYMPHOCYTE COUNT 1.8 K/uL (1.0-2.8); MONOCYTE (%) 7.5 % (3-12); MONOCYTE COUNT 0.6 K/uL (0-0.8); NEUTROPHIL (%) 70.4 % (45-76)
[2018-03-09 21:57] LABS: PTT 31.8 SEC (25-37)
[2018-03-09 21:58] LABS: CHLORIDE 103 mEq/L (99-109); POTASSIUM 4.2 mEq/L (3.7-5.4); SODIUM 142 mEq/L (136-147)
[2018-03-09 21:59] LABS: GLUCOSE 100 mg/dL (70-99)
[2018-03-09 22:00] LABS: HEMOGLOBIN 13.1 G/DL (11.9-15.5); RED BLOOD COUNT 5.23 M/uL (3.80-5.20)
[2018-03-09 22:03] LABS: CREATININE 0.7 mg/dL (0.6-1.3); GFR ESTIMATE (CALCULATED) > 59 mL/min/
[2018-03-09 22:04] LABS: UREA NITROGEN (BUN) 11 mg/dL (9-23)
[2018-03-09 22:11] LABS: TROP-I INTERPRETATION NEGATIVE; TROPONIN-I < 0.01 ng/mL (0.0-0.30)
[2018-03-10 01:30] LABS: IRON 565 MCG/DL (35-150); TRANSFERRIN (TIBC) 250.6 mg/dL (215-380)
[2018-03-10 01:35] LABS: TRANSFERRIN SATUR. 225 % (20-55)
[2018-03-10 01:48] VITALS: BP 138/65
[2018-03-10] MEDS ORDERED: MAGNESIUM400 M1 PO (02:04)
[2018-03-10 02:58] LABS: TROP-I INTERPRETATION NEGATIVE; TROPONIN-I < 0.01 ng/mL (0.0-0.30)
[2018-03-10 03:26] LABS: ALBUMIN 3.9 G/DL (3.2-4.8); ALKALINE PHOSPHATASE 74 IU/L (3-129); ALT (GPT) 9 IU/L (3-49); AST (GOT) 12 IU/L (2-34); DIRECT BILIRUBIN 0.2 mg/dL (0.0-0.3); LIPASE 31 U/L (1.0-51.0); TOTAL BILIRUBIN 0.4 MG/DL (0.0-1.0); TOTAL PROTEIN 6.7 G/DL (6.4-8.3)
[2018-03-10 07:52] VITALS: BP 116/75
[2018-03-10 09:00] LABS: TROP-I INTERPRETATION NEGATIVE; TROPONIN-I 0.03 ng/mL (0.0-0.30)
[2018-03-10 11:58] VITALS: BP 119/58
[2018-03-10 12:17] LABS: APPEARANCE CLEAR ((CLEAR)); BILIRUBIN NEGATIVE; BLOOD NEGATIVE; COLOR YELLOW ((YELLOW)); GLUCOSE (STRIP) >=500; KETONES NEGATIVE; LEUKOCYTES NEGATIVE; NITRITE NEGATIVE; PROTEIN (STRIP) NEGATIVE; UCUL ADDED? NO; UROBILINOGEN 0.2 MG/DL (0.2-1.0)
== END 2018-03-10 15:08 | disposition home or self-care (01) ==
LOC: EME → EDBD 20:38 → EME 20:38 → EDOF 03-10 00:50 → 4SOUTH 03-10 00:50 → EDOF 03-10 00:50 → 4SOUTH 03-10 01:40
PROVIDERS: Emergency Medicine; Physician Assistant
DX: R07.89 Other chest pain (principal); Z98.890 Other specified postprocedural states; G89.29 Other chronic pain; F32.9 Major depressive disorder, single episode, unspecified; F41.9 Anxiety disorder, unspecified; D50.9 Iron deficiency anemia, unspecified; M19.90 Unspecified osteoarthritis, unspecified site; E03.9 Hypothyroidism, unspecified; I10 Essential (primary) hypertension; E78.5 Hyperlipidemia, unspecified; J44.9 Chronic obstructive pulmonary disease, unspecified; Z99.81 Dependence on supplemental oxygen; R60.0 Localized edema; Z82.49 Family history of ischemic heart disease and other diseases of the circulatory system; Z87.891 Personal history of nicotine dependence; Z88.0 Allergy status to penicillin; Z88.1 Allergy status to other antibiotic agents; Z88.8 Allergy status to other drugs, medicaments and biological substances
CPT/HCPCS: 71045; 80048; 80076; 81003; 83540; 83690; 83880; 84466; 84484; 85025; 85610; 85730; 86850; 86870; 86900; 86901; 86920; 93005; 94640; 94799; 99281; 99284; G0378; J1100; J1644; J7512